=== PATIENT | male | born 1970 | race Caucasian/White ===

== ENCOUNTER 2022-06-18 05:22 | Emergency (ER) | payer OTHER ==
[2022-06-18] MEDS ORDERED: SODIUM CHLORIDE 0.9% 1,000 ML IV STA (05:24)
[2022-06-18 05:29] VITALS: RESP 18
[2022-06-18] MEDS ORDERED: levETIRAcetam IV 1,000 MG in SALINE 1 100ML.BAG IVPB ONE (05:30)
[2022-06-18 05:45] LABS: Basophils % (A) 1 %; Eosinophils # (A) 0.2 k/uL (0-0.7); Eosinophils % (A) 2 %; HCT 43.7 % (39.0-53.0); Lymphocytes # (A) 1.6 k/uL (1.0-4.8); Lymphocytes % (A) 23 %; MCH 32.7 pg (25.0-35.0); MCHC 34.3 g/dL (31.0-37.0); MCV 95.6 fL (80.0-100.0); Mean Platelet Volume 7.4; Monocytes # (A) 0.4 k/uL (0-1.0); Monocytes % (A) 6 %; Neutrophils # (A) 4.8 k/uL (1.3-7.7); Neutrophils % (A) 66 %; Platelet Count 427 k/uL (150-450); RBC 4.57 m/uL (4.30-5.90); RDW 12.9 % (11.5-15.5); WBC 7.2 k/uL (3.8-10.6)
[2022-06-18 05:53] LABS: ALT 23 U/L (4-49); African American GFR (CKD) >90 (>60 ml/min/1.73 sqM); Albumin 4.6 g/dL (3.5-5.0); Alcohol <10 mg/dL; Anion Gap 8 mmol/L; Blood Urea Nitrogen 11 mg/dL (9-20); Calcium 9.5 mg/dL (8.4-10.2); Carbon Dioxide 23 mmol/L (22-30); Chloride 105 mmol/L (98-107); Glucose 148 mg/dL (74-99); Non-African American GFR(CKD) >90 (>60 ml/min/1.73 sqM); Sodium 136 mmol/L (137-145); Total Bilirubin 0.6 mg/dL (0.2-1.3); Total Protein 7.1 g/dL (6.3-8.2)
[2022-06-18 06:00] LABS: Magnesium 2.2 mg/dL (1.6-2.3); Potassium 4.1 mmol/L (3.5-5.1)
[2022-06-18 06:01] LABS: AST 35 U/L (17-59)
[2022-06-18 06:02] LABS: Alkaline Phosphatase 37 U/L (38-126)
--- NOTE | 2022-06-18 06:28 | ED ---
Seizure HPI - General Chief Complaint: Seizure Stated Complaint: Seizure Time Seen by Provider: 06/18/22 06:05 Source: patient, family, EMS, RN notes reviewed, old records reviewed Mode of arrival: EMS Limitations: no limitations - History of Present Illness Initial Comments: 51-year-old, well-appearing male presents to the emergency room with his after having a seizure at 0417 this morning. states that he woke her with seizure activity. She states that 3 years ago he had a similar seizure and they did not follow up with neurology at that time. Patient states that he does drink about 6 beers a day every day last drink at midnight. He does not take any medications on a daily basis. He is a nonsmoker. MD Complaint: seizure -: hour(s) (2) Description of Episode: post-event confusion -: minutes(s) (7) Witnessed: yes - by other () Trauma: No Seizure History: history of withdrawal seizures Place: home Possible Precipitating Event: alcohol withdrawal Associated Symptoms: denies other symptoms - Related Data Allergies Allergy/AdvReac Type Severity Reaction Status Date / Time No Known Allergies Allergy Verified 06/18/22 05:37 Review of Systems ROS Statement: Those systems with pertinent positive or pertinent negative responses have been documented in the HPI. ROS Other: All systems not noted in ROS Statement are negative. General Exam Limitations: no limitations General appearance: alert, in no apparent distress Head exam: Present: atraumatic Eye exam: Present: normal appearance, EOMI. Absent: scleral icterus, conjunctival injection, periorbital swelling, periorbital tenderness ENT exam: Present: normal oropharynx, other (bruising to left lateral tongue) Neck exam: Present: normal inspection, full ROM. Absent: tenderness, meningismus, lymphadenopathy Respiratory exam: Present: normal lung sounds bilaterally. Absent: respiratory distress, accessory muscle use Cardiovascular Exam: Present: regular rate, normal rhythm GI/Abdominal exam: Present: soft. Absent: distended, tenderness Extremities exam: Present: normal inspection, full ROM, normal capillary refill. Absent: tenderness, pedal edema Back exam: Present: normal inspection, full ROM. Absent: tenderness, CVA tenderness (R), CVA tenderness (L), paraspinal tenderness, vertebral tenderness, rash noted Neurological exam: Present: alert, oriented X3, CN II-XII intact Expanded Patient oriented to: Present: person, place, time Speech: Present: fluid speech Cranial nerves: EOM's Intact: Normal, Gag Reflex: Normal, Tongue Deviation: Normal, Nystagmus: Normal Cerebellar function: Finger to Nose: Normal, Heel to [place]: Normal Motor strength exam: RUE: 5, LUE: 5, RLE: 5, LLE: 5 Eye Response: (4) open spontaneously Motor Response: (6) obeys commands Verbal Response: (5) oriented Radha Total: 15 Psychiatric exam: Present: normal affect, normal mood Skin exam: Present: warm, dry, normal color. Absent: cyanosis, diaphoretic, petechiae, pallor Course Vital Signs 06/18/22 06/18/22 06/18/22 05:25 07:31 08:20 Temperature 98.7 F 98.1 F Pulse Rate 92 78 83 Respiratory 18 18 18 Rate Blood Pressure 152/91 138/87 138/99 O2 Sat by Pulse 95 98 98 Oximetry Medical Decision Making - Medical Decision Making Patient presents with a seizure today at 0417, witnessed by . He has a history of similar seizure 3 years ago. He does drink daily 6 beers a day. states that it was likely a alcohol withdrawal seizure 3 years ago. Does not take any medication on a daily basis. Last drink was midnight. Alcohol level today is 0. Electrolytes and CBC are unremarkable. CT of the brain shows no mass or intracranial bleed. On physical exam patient has no focal neurological deficits. Moving all extremities. Denies any pain. Patient was given a liter of normal saline and 1 g of Keppra by previous provider. UA positive for tricyclic antidepressants. He states he did take 2 muscle relaxers last night. Patient was offered Librium for alcohol withdrawal or [facility] follow-up and declined. He was advised to follow-up with the primary care doctor or return to the emergency room with any other concerning symptoms. Patient and are agreeable to this plan of care. Patient is ambulatory with steady gait. Case discussed with Dr. Owen. Vital signs are stable at discharge. - Lab Data Result diagrams: 06/18/22 05:34 06/18/22 05:34 Lab Results 06/18/22 06/18/22 06/18/22 Range/Units 05:34 05:34 06:59 WBC 7.2 (3.8-10.6) k/uL RBC 4.57 (4.30-5.90) m/uL Hgb 15.0 (13.0-17.5) gm/dL Hct 43.7 (39.0-53.0) % MCV 95.6 (80.0-100.0) fL MCH 32.7 (25.0-35.0) pg MCHC 34.3 (31.0-37.0) g/dL RDW 12.9 (11.5-15.5) % Plt Count 427 (150-450) k/uL MPV 7.4 Neutrophils % 66 % Lymphocytes % 23 % Monocytes % 6 % Eosinophils % 2 % Basophils % 1 % Neutrophils # 4.8 (1.3-7.7) k/uL Lymphocytes # 1.6 (1.0-4.8) k/uL Monocytes # 0.4 (0-1.0) k/uL Eosinophils # 0.2 (0-0.7) k/uL Basophils # 0.0 (0-0.2) k/uL Sodium 136 L (137-145) mmol/L Potassium 4.1 (3.5-5.1) mmol/L Chloride 105 (98-107) mmol/L Carbon Dioxide 23 (22-30) mmol/L Anion Gap 8 mmol/L BUN 11 (9-20) mg/dL Creatinine 0.66 (0.66-1.25) mg/dL Est GFR (CKD-EPI)AfAm >90 (>60 ml/min/1.73 sqM) Est GFR (CKD-EPI)NonAf >90 (>60 ml/min/1.73 sqM) Glucose 148 H (74-99) mg/dL Calcium 9.5 (8.4-10.2) mg/dL Magnesium 2.2 (1.6-2.3) mg/dL Total Bilirubin 0.6 (0.2-1.3) mg/dL AST 35 (17-59) U/L ALT 23 (4-49) U/L Alkaline Phosphatase 37 L (38-126) U/L Total Protein 7.1 (6.3-8.2) g/dL Albumin 4.6 (3.5-5.0) g/dL Urine Color Light Yellow Urine Appearance Clear (Clear) Urine pH 6.0 (5.0-8.0) Ur Specific [place] 1.009 (1.001-1.035) Urine Protein Negative (Negative) Urine Glucose (UA) Negative (Negative) Urine Ketones Negative (Negative) Urine Blood Negative (Negative) Urine Nitrite Negative (Negative) Urine Bilirubin Negative (Negative) Urine Urobilinogen <2.0 (<2.0) mg/dL Ur Leukocyte Esterase Negative (Negative) Urine Opiates Screen Not Detected (NotDetected) Ur Oxycodone Screen Not Detected (NotDetected) Urine Methadone Screen Not Detected (NotDetected) Ur Propoxyphene Screen Not Detected (NotDetected) Ur Barbiturates Screen Not Detected (NotDetected) U Tricyclic Antidepress Detected H (NotDetected) Ur Phencyclidine Scrn Not Detected (NotDetected) Ur Amphetamines Screen Not Detected (NotDetected) U Methamphetamines Scrn Not Detected (NotDetected) U Benzodiazepines Scrn Not Detected (NotDetected) Urine Cocaine Screen Not Detected (NotDetected) U Marijuana (THC) Screen Detected H (NotDetected) Serum Alcohol <10 mg/dL Disposition Clinical Impression: Seizure Disposition: HOME SELF-CARE Condition: Good Instructions (If sedation given, give patient instructions): Recurrent Seizures in Adults (ED) Additional Instructions: This is likely an alcohol withdrawal seizure. You were offered Librium and referred to services at [facility] for alcohol withdrawal assistance and declined at this time. Follow-up with the primary care doctor this week. Return to the emergency room with any new or concerning symptoms. Is patient prescribed a controlled substance at d/c from ED?: No Referrals: None,Stated [Primary Care Provider] - 1-2 days Thee Coombs MD [REFERRING] - 1-2 days Time of Disposition: 08:03
--- NOTE | 2022-06-18 06:37 | CT ---
EXAMINATION TYPE: CT brain wo con DATE OF EXAM: 06/18/2022 COMPARISON: None HISTORY: seizure. no prior on PACS CT DLP: 1157 mGycm Automated exposure control for dose reduction was used. Ventricles and sulci appear normal. There is no mass effect or midline shift. There is no evidence of intracranial hemorrhage. Calvarium is intact. There is normal aeration of the mastoid sinuses. IMPRESSION: Normal unenhanced head CT scan.
[2022-06-18 07:22] LABS: Appearance,Urine Clear (Clear); Bilirubin,Urine Negative (Negative); Blood,Urine Negative (Negative); Color,Urine Light Yellow; Glucose,Urine (UA) Negative (Negative); Ketones,Urine Negative (Negative); Leukocyte Esterase,Urine Negative (Negative); Nitrite,Urine Negative (Negative); Protein,Urine Negative (Negative); Specific Gravity,Urine 1.009 (1.001-1.035); Urobilinogen,Urine <2.0 mg/dL (<2.0)
[2022-06-18 07:45] LABS: Amphetamine Screen,Urine Not Detected (NotDetected); Barbiturate Screen,Urine Not Detected (NotDetected); Benzodiazepines Screen,Urine Not Detected (NotDetected); Cocaine Screen,Urine Not Detected (NotDetected); Methadone Screen, Urine Not Detected (NotDetected); Opiate Screen,Urine Not Detected (NotDetected); Oxycodone Screen, Urine Not Detected (NotDetected); Phencyclidine Screen,Urine Not Detected (NotDetected); Tricyclic Antidepressant,Urine Detected (NotDetected); Urn Cannabinoid Scrn Detected (NotDetected)
[2022-06-18 08:23] VITALS: BP 138/99; PULSE 83; TEMP 98.1
== END 2022-06-18 08:23 | disposition home or self-care (01) ==
LOC: EC 05:22
DX: R56.9 Unspecified convulsions (principal)
CPT/HCPCS: 36415; 93005; 80053; 83735; 85025; 81003; 80306; 80320; 70450; 99285; 96365; 96366; J1953

== ENCOUNTER 2022-08-22 06:55 | Inpatient (IN) | payer OTHER ==
[2022-08-22] MEDS ORDERED: SODIUM CHLORIDE 0.9% 1,000 ML IV STA (07:05)
[2022-08-22 07:10] VITALS: RESP 16
--- NOTE | 2022-08-22 07:35 | ED ---
General Adult HPI - General Chief complaint: Alcohol Stated complaint: Seizure Time Seen by Provider: 08/22/22 07:00 Source: patient, EMS, RN notes reviewed Mode of arrival: EMS Limitations: altered mental status - History of Present Illness Initial comments: 52-year-old male presents emergency Department with chief complaint of seizure. Patient brought in by medics EMS after called. Patient does not remember anything states he woke up to EMS at his house. Patient does admit that he drinks approximately 6 beers daily but does not feel this is related to has not drank any less or more recent. Patient did have a seizure a few months ago but never followed neurology. Patient did have CT of his brain at that time which showed no acute process. Patient did have my attending injury no recurrent bleeding. Tetanus is up-to-date. Denies any head neck or back pain. - Related Data Allergies Allergy/AdvReac Type Severity Reaction Status Date / Time No Known Allergies Allergy Verified 06/18/22 05:37 Review of Systems ROS Statement: Those systems with pertinent positive or pertinent negative responses have been documented in the HPI. ROS Other: All systems not noted in ROS Statement are negative. Past Medical History Past Medical History: Neurologic Disorder History of Any Multi-Drug Resistant Organisms: None Reported Past Psychological History: Unable to Obtain Smoking Status: Current every day smoker Past Alcohol Use History: Daily Past Drug Use History: Marijuana General Exam Limitations: no limitations General appearance: alert, in no apparent distress Head exam: Present: atraumatic, normocephalic, normal inspection Eye exam: Present: normal appearance, PERRL, EOMI. Absent: scleral icterus, conjunctival injection, periorbital swelling ENT exam: Present: mucous membranes moist. Absent: normal oropharynx (Small tongue laceration on the lateral portion) Neck exam: Present: normal inspection, full ROM. Absent: tenderness, meningismus, lymphadenopathy Respiratory exam: Present: normal lung sounds bilaterally. Absent: respiratory distress, wheezes, rales, rhonchi, stridor Cardiovascular Exam: Present: regular rate, normal rhythm, normal heart sounds. Absent: systolic murmur, diastolic murmur, rubs, gallop, clicks GI/Abdominal exam: Present: soft, normal bowel sounds. Absent: distended, ten derness, guarding, rebound, rigid Neurological exam: Present: alert, oriented X3, CN II-XII intact, reflexes normal. Absent: motor sensory deficit Skin exam: Present: warm, dry, intact, normal color. Absent: rash Course Vital Signs 08/22/22 08/22/22 08/22/22 07:05 07:40 08:30 Temperature 97.8 F Pulse Rate 94 87 94 Respiratory 16 16 16 Rate Blood Pressure 157/91 147/93 154/85 O2 Sat by Pulse 95 98 100 Oximetry 08/22/22 08/22/22 09:00 09:30 Temperature Pulse Rate 89 81 Respiratory 16 16 Rate Blood Pressure 135/90 136/89 O2 Sat by Pulse 98 98 Oximetry Medical Decision Making - Lab Data Result diagrams: 08/22/22 07:30 08/22/22 07:30 Lab Results 08/22/22 08/22/22 Range/Units 07:30 07:30 WBC 8.0 (3.8-10.6) k/uL RBC 4.97 (4.30-5.90) m/uL Hgb 16.0 (13.0-17.5) gm/dL Hct 45.7 (39.0-53.0) % MCV 92.0 (80.0-100.0) fL MCH 32.2 (25.0-35.0) pg MCHC 35.0 (31.0-37.0) g/dL RDW 12.8 (11.5-15.5) % Plt Count 348 (150-450) k/uL MPV 8.2 Neutrophils % 79 % Lymphocytes % 12 % Monocytes % 5 % Eosinophils % 2 % Basophils % 0 % Neutrophils # 6.3 (1.3-7.7) k/uL Lymphocytes # 1.0 (1.0-4.8) k/uL Monocytes # 0.4 (0-1.0) k/uL Eosinophils # 0.2 (0-0.7) k/uL Basophils # 0.0 (0-0.2) k/uL Sodium 139 (137-145) mmol/L Potassium 4.4 (3.5-5.1) mmol/L Chloride 102 (98-107) mmol/L Carbon Dioxide 27 (22-30) mmol/L Anion Gap 10 mmol/L BUN 8 L (9-20) mg/dL Creatinine 0.68 (0.66-1.25) mg/dL Est GFR (CKD-EPI)AfAm >90 (>60 ml/min/1.73 sqM) Est GFR (CKD-EPI)NonAf >90 (>60 ml/min/1.73 sqM) Glucose 118 H (74-99) mg/dL Calcium 10.0 (8.4-10.2) mg/dL Magnesium 2.3 (1.6-2.3) mg/dL Total Bilirubin 0.6 (0.2-1.3) mg/dL AST 27 (17-59) U/L ALT 21 (4-49) U/L Alkaline Phosphatase 42 (38-126) U/L Total Protein 7.7 (6.3-8.2) g/dL Albumin 5.1 H (3.5-5.0) g/dL Serum Alcohol <10 mg/dL Disposition Clinical Impression: Alcohol withdrawal seizure, Seizure, Dehydration Disposition: ADMITTED IP TO THIS HOSP Condition: Fair Referrals: None,Stated [Primary Care Provider] - 1-2 days Time of Disposition: 08:58
[2022-08-22 07:58] LABS: Basophils % (A) 0 %; Eosinophils # (A) 0.2 k/uL (0-0.7); Eosinophils % (A) 2 %; HCT 45.7 % (39.0-53.0); Lymphocytes % (A) 12 %; MCH 32.2 pg (25.0-35.0); Mean Platelet Volume 8.2; Monocytes # (A) 0.4 k/uL (0-1.0); Monocytes % (A) 5 %; Neutrophils # (A) 6.3 k/uL (1.3-7.7); Neutrophils % (A) 79 %; Platelet Count 348 k/uL (150-450); RBC 4.97 m/uL (4.30-5.90); RDW 12.8 % (11.5-15.5)
[2022-08-22 08:11] LABS: ALT 21 U/L (4-49); AST 27 U/L (17-59); African American GFR (CKD) >90 (>60 ml/min/1.73 sqM); Albumin 5.1 g/dL (3.5-5.0); Alcohol <10 mg/dL; Alkaline Phosphatase 42 U/L (38-126); Anion Gap 10 mmol/L; Blood Urea Nitrogen 8 mg/dL (9-20); Carbon Dioxide 27 mmol/L (22-30); Chloride 102 mmol/L (98-107); Glucose 118 mg/dL (74-99); Magnesium 2.3 mg/dL (1.6-2.3); Non-African American GFR(CKD) >90 (>60 ml/min/1.73 sqM); Potassium 4.4 mmol/L (3.5-5.1); Sodium 139 mmol/L (137-145); Total Bilirubin 0.6 mg/dL (0.2-1.3); Total Protein 7.7 g/dL (6.3-8.2)
[2022-08-22] MEDS ORDERED: LORazepam 1 MG TAB PO PRN ×4 (10:03)
[2022-08-22] MEDS ORDERED: LORazepam 0.5 MG TAB PO PRN (10:03)
[2022-08-22] MEDS ORDERED: LORazepam 2 MG/ML INJ IV PRN (10:03)
[2022-08-22] MEDS ORDERED: NALOXONE 0.4 MG/ML 1 ML VIAL IV PRN (10:04)
[2022-08-22] MEDS ORDERED: ACETAMINOPHEN TAB 325 MG TAB PO PRN (10:04)
[2022-08-22] MEDS: SODIUM CHLORIDE 0.9% 1,000 ML IV SCH ×2 (12:10→14:38)
[2022-08-22] MEDS ORDERED: TEMAZEPAM 15 MG CAP PO PRN (12:33)
[2022-08-22 12:57] LABS: Amphetamine Screen,Urine Not Detected (NotDetected); Barbiturate Screen,Urine Not Detected (NotDetected); Benzodiazepines Screen,Urine Not Detected (NotDetected); Cocaine Screen,Urine Not Detected (NotDetected); Methadone Screen, Urine Not Detected (NotDetected); Opiate Screen,Urine Not Detected (NotDetected); Oxycodone Screen, Urine Not Detected (NotDetected); Phencyclidine Screen,Urine Not Detected (NotDetected); Tricyclic Antidepressant,Urine Not Detected (NotDetected); Urn Cannabinoid Scrn Detected (NotDetected)
--- NOTE | 2022-08-22 13:13 | P.CNNES ---
History of Present Illness Consult date: 08/02/22 Requesting physician: Ed York Reason for Consult: seizure History of Present Illness: This is a 52-year-old gentleman with history of one seizure episode in 05/2022, alcohol use, tobacco use presented emergency department on 08/22/2022 for a another seizure episode. Patient stated that he had a seizure episode in May and had his second seizure today and both times and happened while sleeping. He bit his tongue this time on bilateral lateral anterior side. He denies any urinary or bowel incontinence. He does not recall of the seizure episode but it was witnessed by his appear denies any urinary or bowel incontinence. Denies any auras prior to the seizure. He states that he continues to drink hea vily and drinks at least 6 small shots. He denies tapering alcohol. Denies any family history of seizure. He stated that his father had glioblastoma multiform in his late 50s years old. She denies of any headache, any visual disturbance, focal weakness or numbness. She denies of any fever. He does smoke about a pack a day. He uses marijuana but denies any illicit drug use. Some other workup during this hospital visit consisted of: Patient is afebrile CBC with differential is unremarkable Glucose is 118, plasma lactic acid is 0.9. AST and ALT is within normal limits. Sodium is within normal limits. Urine drug screen is marijuana is detected the serum alcohol was less than 10. Of note patient had CT of the head without contrast on 06/18/2022 because of seizure and it's reported as unremarkable. Review of Systems Review of system: The 12 point system was reviewed and apparent positive and negative per HPI. Past Medical History Past Medical History: Neurologic Disorder History of Any Multi-Drug Resistant Organisms: None Reported Past Psychological History: Unable to Obtain Smoking Status: Current every day smoker Past Alcohol Use History: Daily Past Drug Use History: Marijuana Medications and Allergies Home Medications Medication Instructions Recorded Confirmed Type No Known Home Medications 08/22/22 08/22/22 History Allergies Allergy/AdvReac Type Severity Reaction Status Date / Time No Known Allergies Allergy Verified 08/22/22 10:49 Physical Examination - Vital Signs Vital Signs: Vital Signs Temp Pulse Resp BP Pulse Ox 08/22/22 11:00 83 16 148/81 98 08/22/22 10:30 87 16 120/74 99 08/22/22 10:00 79 16 144/91 97 08/22/22 09:30 81 16 136/89 98 08/22/22 09:00 89 16 135/90 98 08/22/22 08:30 94 16 154/85 100 08/22/22 07:40 87 16 147/93 98 08/22/22 07:05 97.8 F 94 16 157/91 95 Intake and Output 08/21/22 08/22/22 08/22/22 22:59 06:59 14:59 Other: Weight 77.111 kg GENERAL: The patient is lying in bed and is not in acute distress. CHEST: The heart rate is regular rate rhythm. No murmurs to auscultation. LUNG: Clear to auscultation bilaterally no wheezing noted throughout. Not labored breathing. ABDOMEN/GI: Bowel sounds present in all 4 quadrants. No tenderness to palpation throughout. NEUROLOGICAL: Higher mental function: The patient is awake, alert, oriented to self, place and time. Patient is following commands. No aphasia and no neglect. Cranial nerves: The pupils are round, equal and reactive to light and accommodation. Visual venegas are full to confrontation throughout. Extraocular movement is intact no nystagmus is noted. Facial sensation is normal to touch throughout. The facial strength is normal throughout. Hearing is normal bi laterally to hand rub. Tongue is midline and moved [id number] without any difficulty. Has tongue bite over the anterior lateral bilaterally. No dysarthria is noted. Shoulder shrug is normal bilaterally. Motor: The strength is 5 over 5 throughout. Normal tone and bulk. Cerebellum: Normal finger to nose bilaterally. Sensation: Sensation is normal to touch throughout. Reflexes (right/left): 2+ throughout. Plantars are downgoing bilaterally. Results - Laboratory Findings CBC and BMP: 08/22/22 07:30 08/22/22 07:30 Abnormal Lab Findings: Abnormal Labs 08/22/22 08/22/22 07:30 07:30 BUN 8 L Glucose 118 H Albumin 5.1 H U Marijuana (THC) Screen Detected H Assessment and Plan Assessment: Breakthrough seizure (this is second seizure, had one in 05/2022 and had another today and both while asleep. Has tongue bite. Denies cutting down on his alcohol use but his level is <2). Unsure if patient has primary epilepsy or due to alcohol Significant ongoing alcohol use Tobacco use Depression Anxiety Father had history of glioblastoma multiform. Plan: I ordered a routine EEG. I started the patient on Vimpat 50 motor arm 1 tablet twice a day since this is second seizure. Did not start Keppra since has depression and can worsening his mood. Recommend MRI Brain w/ and w/o seizure protocol (but today MRI is full. Patient stated he would prefer to do it as outpatient). CT of the head without is ordered by the primary team Is on seizure pads and seizure precautions Patient is on CIWA protocol and will defer management to primary team. Continue thiamine 100 mg daily Patient was counseled on tobacco station on alcohol cessation. Patient was notified that per [place] DMV so avoid driving for 6 month until seizure-free, avoid heights, avoid swimming unassisted or using any heavy machinery Plan was discussed with the patient. Thank you for the consultation. Jordi Sood M.D. Neuro-Hospitalist Time with Patient: Greater than 30
--- NOTE | 2022-08-22 13:58 | CT ---
EXAMINATION TYPE: CT brain wo con DATE OF EXAM: 08/22/2022 COMPARISON: 08/19/2022 INDICATION: Seizure DLP: 1263 mGycm, Automated exposure control for dose reduction was used. CONTRAST: None CT of the brain is performed utilizing 3 mm thick sections through the posterior fossa and 3 mm thick sections through the remaining calvarium. Study is performed within 24 hours of arrival to the hosp ital. No abnormal hyperdensity is present to suggest an acute intracranial hemorrhage. No mass lesion is evident. No acute infarcts are evident. Ventricles and sulci are appropriate for the patient age. Retention cyst may be within the right maxillary sinus. Paranasal sinuses and mastoid air cells are o therwise clear. IMPRESSIONS: 1. No acute cranial process. Follow-up MRI could be performed as clinically indicated.
[2022-08-22] MEDS: THIAMINE 100 MG TAB PO SCH (14:39)
[2022-08-22] MEDS: LACOSAMIDE 50 MG TABLET PO SCH ×2 (14:39→20:57)
[2022-08-22] MEDS: HEPARIN SODIUM,PORCINE/PF 5,000 UNIT/0.5 ML SYRINGE SQ SCH (20:57)
--- NOTE | 2022-08-22 23:58 | HP ---
HISTORY AND PHYSICAL CHIEF COMPLAINT: Seizure. HISTORY OF PRESENT ILLNESS: A 52-year-old gentleman with a past medical history of multiple medical issues including seizures who recently moved to the area, not complaining of . Admitted to generalized tonic-clonic seizures today. The patient apparently had a last seizure in May. Patient also had a history of some alcohol intake also. There is no history of any fever rigors or chills. PAST MEDICAL HISTORY: Reviewed include seizures, some alcohol. HOME MEDICATIONS: None. ALLERGIES: None. FAMILY HISTORY: No history of heart disease or strokes in the family. SOCIAL HISTORY: History of smoking, alcohol, THC. REVIEW OF SYSTEMS: A 14-point review is negative as mentioned earlier. PHYSICAL EXAMINATION: VITAL SIGNS: Pulse is 87, blood pressure 110/74, and respirations 16. HEENT: Conjunctivae normal. NECK: No jugular venous distention. RESPIRATIONS: Normal respirations at the basis. No rhonchi, no crackles. ABDOMEN: Soft. Nontender. NERVOUS SYSTEM: As mentioned cranial nerves normal. No focal deficits. SKIN: No ulcer, rash, bleeding. JOINTS: No active deforming arthropathy. LABS: Reviewed glucose 11. ASSESSMENT: 1. Acute tonic-clonic seizures. 2. History of previous seizures history of possible ETOH. RECOMMENDATIONS: This 52-year-old gentleman presented with multiple complex medical issues, we will monitor the patient closely. Continue the current medications, symptomatic treatment. We will obtain CAT scan of the brain and routine workup and neurology evaluation. We will continue to monitor. Repeat labs. Remote telemetry. Guarded prognosis. Further condition follow, also recommend the patient follow closely with primary physician as well as neurologist, NUSRAT protocol. LAINEYL / JASSIN: [id number] / MTDHemant
--- NOTE | 2022-08-23 03:40 | EEG ---
ELECTROENCEPHALOGRAM REPORT CLINICAL HISTORY: This is a 52-year-old gentleman who had another seizure-like episode at home. The video EEG is obtained to evaluate for seizure epileptiform activity. RELEVANT MEDICATION: Ativan p.r.n. EEG TYPE: A routine 21-channel EEG is performed with video using the 10/20 electrode placement system. DESCRIPTION: Wakefulness is only obtained. During awake state, the posterior-dominant rhythm consists of low to moderate voltage of 9 to 9.5 hertz activity that is well modulated and well sustained. There was no physiological stage 2 sleep architecture. There is no focal slowing. There is excessive beta activity seen during the study. INTERICTAL AND ICTAL: None. ACTIVATION PROCEDURE: Photic stimulation did not evoke a posterior driving response. There is no abnormality during the photic stimulation. Hyperventilation is not performed. CLINICAL INTERPRETATION: This is an abnormal routine EEG. The excessive beta activity is likely due to medication effect (Ativan). Otherwise, there is no focal slowing, epileptiform discharge, or seizure on the EEG. Clinical correlation is recommended MMODL / JASSIN: [id number] / A.[facility]. FOX MEMORIAL HOSPITALHemant
[2022-08-23 05:47] VITALS: BP 117/76; PULSE 68; TEMP 97.5
[2022-08-23] MEDS: SODIUM CHLORIDE 0.9% 1,000 ML IV SCH (06:07)
[2022-08-23] MEDS ORDERED: PANTOPRAZOLE 40 MG TABLET PO SCH (07:30)
[2022-08-23 08:56] LABS: Basophils # (A) 0.05 X 10*3/uL (0.00-0.10); Basophils % (A) 0.5 %; Eosinophils # (A) 0.05 X 10*3/uL (0.04-0.35); Eosinophils % (A) 0.5 %; HCT 43.4 % (39.6-50.0); HGB 15.4 g/dL (13.0-17.0); Immature Grans, Automated 0.3 %; Lymphocytes # (A) 2.02 X 10*3/uL (0.90-5.00); Lymphocytes % (A) 20.2 %; MCH 31.8 pg (27.0-32.0); MCHC 35.5 g/dL (32.0-37.0); MCV 89.7 fL (80.0-97.0); Mean Platelet Volume 9.5 fL (9.5-12.2); Monocytes # (A) 0.97 X 10*3/uL (0.20-1.00); Monocytes % (A) 9.7 %; NRBC Per 100 WBC 0 /100 WBCS (0.0-0.0); Neutrophils # (A) 6.86 X 10*3/uL (1.80-7.70); Neutrophils % (A) 68.8 %; Platelet Count 385 X 10*3/uL (140-440); RBC 4.84 X 10*6/uL (4.40-5.60); RDW 12.3 % (11.5-14.5); WBC 9.98 X 10*3/uL (4.50-10.00)
[2022-08-23] MEDS: THIAMINE 100 MG TAB PO SCH (09:05)
[2022-08-23] MEDS: HEPARIN SODIUM,PORCINE/PF 5,000 UNIT/0.5 ML SYRINGE SQ SCH (09:05)
[2022-08-23] MEDS: LACOSAMIDE 50 MG TABLET PO SCH (09:05)
[2022-08-23 09:11] LABS: Anion Gap 12.7 mmol/L (10.00-18.00); BUN/Creat Ratio 9.14 Ratio (12.00-20.00); Carbon Dioxide 25.7 mmol/L (20.0-27.5); Potassium 4.1 mmol/L (3.5-5.5)
[2022-08-23 09:12] LABS: Blood Urea Nitrogen 7.4 mg/dL (9.0-27.0); Calcium 9.7 mg/dL (8.7-10.3)
--- NOTE | 2022-08-23 10:50 | P.PN ---
Subjective Progress Note Date: 08/23/22 Patient seen at bedside and the he states that he's doing well. Per the patient's nurse no further seizure episodes since the patient has been in our hospital. Objective - Vital Signs Vital signs: Vital Signs Temp 97.5 F L 08/23/22 05:00 Pulse 68 08/23/22 05:00 Resp 16 08/23/22 05:00 BP 117/76 08/23/22 05:00 Pulse Ox 96 08/23/22 07:28 FiO2 Intake & Output 08/22/22 08/23/22 08/23/22 18:59 06:59 18:59 Intake Total 240 590 Balance 240 590 Weight 77.111 kg Intake: Oral 240 590 Other: # Voids 4 3 - Exam GENERAL: The patient is lying in bed and is not in acute distress. NEUROLOGICAL: Higher mental function: The patient is awake, alert, oriented to self, place and time. Patient is following commands. No aphasia and no neglect. Cranial nerves: The pupils are round, equal and reactive to light and accommodation. Visual venegas are full to confrontation throughout. Extraocular movement is intact no nystagmus is noted. Facial sensation is normal to touch throughout. The facial strength is normal throughout. Hearing is normal bilaterally to hand rub. Tongue is midline and moved [id number] without any d ifficulty. Has tongue bite over the anterior lateral bilaterally. No dysarthria is noted. Shoulder shrug is normal bilaterally. Motor: The strength is 5 over 5 throughout. Normal tone and bulk. Cerebellum: Normal finger to nose bilaterally. Sensation: Sensation is normal to touch throughout. Reflexes (right/left): 2+ throughout. Plantars are downgoing bilaterally. Some other workup during this hospital visit consisted of: Patient is afebrile CBC with differential is unremarkable Glucose is 118, plasma lactic acid is 0.9. AST and ALT is within normal limits. Sodium is within normal limits. Routine EEG is abnormal. The excessive beta activity is likely due to medication effect (Ativan). Otherwise the background is normal, there is no focal slowing, epileptiform discharges or seizure CT of the head is reported as no acute cranial process. Follow-up MRI could be performance currently indicated. Urine drug screen is marijuana is detected the serum alcohol was less than 10. - Labs CBC & Chem 7: 08/23/22 05:47 08/23/22 05:47 Labs: Abnormal Lab Results - Last 24 Hours (Table) 08/22/22 08/23/22 Range/Units 07:30 05:47 BUN 7.4 L (9.0-27.0) mg/dL BUN/Creatinine Ratio 9.14 L (12.00-20.00) Ratio U Marijuana (THC) Screen Detected H (NotDetected) Assessment and Plan Assessment: * Breakthrough seizure (this is second seizure, had one in 05/2022 and had another on 08/22/22 and both while asleep. Has tongue bite. Denies cutting down on his alcohol use but his level is <2). Unsure if patient has primary epilepsy or due to alcohol * Significant ongoing alcohol use * Tobacco use * Depression * Anxiety * Marijuana use * Father had history of glioblastoma multiform. Plan: Routine EEG is negative for epileptiform discharges or seizure. Recommend MRI Brain w/ and w/o seizure protocol as outpatient (he does not want to stay as inpatient for it). Recommend prolonged EEG/ambulatory EEG as outpatient (preferable sleep deprived). I personally ordered it as outpatient and will be coordinated by our bioinformatics research technician. Continue Vimpat 50mg 1 tablet twice a day since this is second seizure (started on 08/22/22). Did not start Keppra since has depression and can worsening his mood. Is on seizure pads and seizure precautions Patient is on CIWA protocol and will defer management to primary team. Continue thiamine 100 mg daily Patient was counseled on tobacco station on alcohol cessation. Patient was notified that per [place] DMV so avoid driving for 6 month until seizure-free, avoid heights, avoid swimming unassisted or using any heavy machinery Patient needs to follow-up with neurologist as outpatient within 1-2 weeks. Plan was discussed with the patient and his nurse. Patient is clear for discharge from neurological perspective. Jordi Sood M.D. Neuro-Hospitalist Time with Patient: Less than 30
[2022-08-23] MEDS ORDERED: MULTIVITAMINS, THERA 1 EACH TAB PO SCH (12:00)
[2022-08-23] MEDS ORDERED: FOLIC ACID 1 MG TAB PO SCH (12:00)
--- NOTE | 2022-08-24 10:44 | DS ---
DISCHARGE SUMMARY FINAL DIAGNOSES: 1. Acute tonic-clonic seizures. 2. History of previous seizures with possible EtOH. DISCHARGE DISPOSITION: The patient will be discharged in stable condition. Guarded prognosis. Discharge cleared by Neurology. HISTORY OF PRESENT ILLNESS: This is a 52-year-old gentleman with a past medical history of multiple medical problems admitted with seizures. Patient was treated with Vimpat. EEG was normal. Dr. Sood saw the patient and recommend that the patient be discharged on Vimpat and further recommendations to follow with Dr. Cullen and Dr. Tirado on the outpatient setting and then dosage should be adjusted in the outpatient setting. No EtOH. Once again, the prognosis was guarded. MMODL / IJN: [id number] /
== END 2022-08-23 11:45 | disposition home or self-care (01) | DRG 101 ==
LOC: EC 06:55 → 5NMEDONC 10:06
PROVIDERS: ADMIT Internal Medicine; ATTEND Internal Medicine
DX: R56.9 Unspecified convulsions (principal); E86.0 Dehydration; F17.210 Nicotine dependence, cigarettes, uncomplicated; F32.A Depression, unspecified; F41.9 Anxiety disorder, unspecified; Z71.6 Tobacco abuse counseling; Z71.41 Alcohol abuse counseling and surveillance of alcoholic; Z72.89 Other problems related to lifestyle
CPT/HCPCS: 36415; 70450; 80048; 80053; 80306; 80320; 83605; 83735; 85025; 93005; 94760; 95816; 96360; 99285

== ENCOUNTER → 2022-09-04 | Outpatient (CLI) | payer OTHER | LOC: NEUROMAIN 07:39 | PROVIDERS: ATTEND Student in an Organized Health Care Education/Training Program | DX: G40.89 Other seizures (principal) | CPT/HCPCS: 95713 ==

== ENCOUNTER 2022-12-16 09:46 | Emergency (ER) | payer OTHER ==
[2022-12-16] MEDS ORDERED: SODIUM BICARB 8.4% 50 ML SYR (1 MEQ/ML) ONE (09:47)
[2022-12-16] MEDS ORDERED: EPINEPHrine 10 ML SYRINGE (0.1 MG/ML) ONE (09:47)
--- NOTE | 2022-12-16 10:01 | ED ---
General Adult HPI - General Stated complaint: cardiac arrest Time Seen by Provider: 12/16/22 09:46 Source: EMS, RN notes reviewed, old records reviewed (Previous admission for alcohol withdrawal seizure) Mode of arrival: EMS Limitations: altered mental status, physical limitation - History of Present Illness Initial comments: Patient is a 52-year-old male presenting to the urgency Department priority 1, EMS. Patient was working in his garage ear last known well 8:45 AM. Patient did ask for a couple of coffee. Family returned at 9 AM and found patient unresponsive on the floor. Bystander CPR was started immediately. Please arrive within 5 minutes and continued CPR. EMS arrived at 911 and continued CPR. Patient was intubated and placed on Zane device as well as IO access. Patient received 7 epinephrine in route. Patient arrives to emergency department at 946, patient unresponsive. - Related Data Previous Rx's Medication Instructions Recorded Folic Acid 1 mg PO DAILY #30 tablet 08/23/22 Lacosamide [Vimpat] 100 mg PO BID #60 tab 08/23/22 Multivitamins, Thera [Multivitamin] 1 tab PO DAILY #30 tablet 08/23/22 Thiamine [Vitamin B-1] 100 mg PO DAILY #30 tablet 08/23/22 Allergies Allergy/AdvReac Type Severity Reaction Status Date / Time No Known Allergies Allergy Verified 08/22/22 10:49 Review of Systems ROS Statement: Those systems with pertinent positive or pertinent negative responses have been documented in the HPI. ROS Other: All systems not noted in ROS Statement are negative. Limitations: ROS unobtainable due to patients medical condition Past Medical History Past Medical History: Neurologic Disorder Additional Past Medical History / Comment(s): possible seizures History of Any Multi-Drug Resistant Organisms: None Reported Past Surgical History: No Surgical Hx Reported Additional Past Surgical History / Comment(s): none Past Psychological History: Unable to Obtain Smoking Status: Current every day smoker Past Alcohol Use History: Daily Past Drug Use History: Marijuana General Exam Limitations: altered mental status, physical limitation General appearance: obtunded Head exam: Present: atraumatic Eye exam: Present: other (Pupils are fixed and dilated) ENT exam: Present: other (Intubated) Respiratory exam: Present: other (No spontaneous breath sounds. Equal breath sounds with bagging insufflation) Cardiovascular Exam: Present: other (No pulse. No heart sounds.) GI/Abdominal exam: Present: soft Extremities exam: Present: normal inspection Neurological exam: Present: other (Unresponsive. GCS 3) Course - Reevaluation(s) Reevaluation #1: 12/16/22 10:01 At 957 despite further epinephrine and CPR patient remains asystole/PEA. No heart sounds. No spontaneous breath sounds. No pulse. No spots of pain. Pupils are fixed and dilated. Time of 9:57 AM. 12/16/22 10:12 Family still not is present. Case was discussed with medical assistant cardiology Octavia once family arrives and she will decide disposition of body at that time. Medical Decision Making - Medical Decision Making Was pt. sent in by a medical professional or institution (, PA, CHILD SUPPORT OFFICER, urgent care, hospital, or [place] [facility] facility...) When possible be specific @ -No Did you speak to anyone other than the patient for history (EMS, parent, family, police, friend...)? What history was obtained from this source @ -EMS provides entire history. Patient is unresponsive. Did you review nursing and triage notes (agree or disagree)? Why? @ -I reviewed and agree with nursing and triage notes Were old charts reviewed (outside hosp., previous admission, EMS record, old EKG, old radiological studies, urgent care reports/EKG's, [place] [facility] [place] records)? Report findings @ -Previous admission reviewed for alcohol withdrawal/seizure Differential Diagnosis (chest pain, altered mental status, abdominal pain women, abdominal pain men, vaginal bleeding, weakness, fever, dyspnea, syncope, headache, dizziness, GI bleed, back pain, seizure, CVA, palpatations, mental health)? @ -Differential Chest Pain: Stable Angina, Unstable Angina, STEMI, NSTEMI Aortic Dissection, Pneumothorax, Musculoskeletal, Esophageal Spasm GERD, Cholecystitis, Pancreatitis, Zoster, this is not meant to be an all-inclusive list. Differential Altered Mental Status: Hypoglycemia, DKA, hypercapnia, ETOH, overdose, CO poisoning, trauma, myxedema coma, HTN encephalopathy, infection, encephalitis, psychosis, intercranial hemorrhage, hepatic encephalopathy, meningitis, CVA, this is not meant to be an all-inclusive list EKG interpreted by me (3pts min.). @ - X-rays interpreted by me (1pt min.). @ -None done CT interpreted by me (1pt min.). @ -None done U/S interpreted by me (1pt. min.). @ -None done What testing was considered but not performed or refused? (CT, X-rays, U/S, labs)? Why? @ -Multiple tests considered including x-ray CT and labs however patient has What meds were considered but not given or refused? Why? @ -None Did you discuss the management of the patient with other professionals (professionals i.e. DrJenny, PA, CHILD SUPPORT OFFICER, lab, RT, psych nurse, social service agency director, principle industrial hygienist, teacher, community resource officer, case checker)? Give summary @ -Discuss case with medical assistant cardiology and disposition is still pending Was smoking cessation discussed for >3mins.? @ -No Was critical care preformed (if so, how long)? @ -Critical care time 10 minutes Were there social determinants of health that impacted care today? How? (Homelessness, low income, unemployed, alcoholism, drug addiction, transportation, low edu. Level, literacy, decrease access to med. care, care home, rehab)? @ -No Was there de-escalation of care discussed even if they declined (Discuss DNR or withdrawal of care, Hospice)? DNR status @ -No What co-morbidities impacted this encounter? (DM, HTN, Smoking, COPD, CAD, Cancer, CVA, ARF, Chemo, Hep., AIDS, mental health diagnosis, sleep apnea, morbid obesity)? @ -None Was patient admitted / discharged? Hospital course, mention meds given and route, prescriptions, significant lab abnormalities, going to OR and other pertinent info. @ -Patient . Time of 957. school psychological examiner updated. Family now present. Undiagnosed new problem with uncertain prognosis? @ -No Drug Therapy requiring intensive monitoring for toxicity (Heparin, Nitro, Insulin, Cardizem)? @ -No Were any procedures done? @ -No Diagnosis/symptom? @ -Cardiac arrest Acute, or Chronic, or Acute on Chronic? @ -Acute Uncomplicated (without systemic symptoms) or Complicated (systemic symptoms)? @ -Complicated by Side effects of treatment? @ -No Exacerbation, Progression, or Severe Exacerbation? @ -No Poses a threat to life or bodily function? How? (Chest pain, [place], [place], pneumonia, PE, COPD, DKA, ARF, appy, cholecystitis, CVA, Diverticulitis, Homicidal, Suicidal, threat to staff... and all critical care pts) @ -Complicated by Critical Care Time Critical Care Time: Yes Total Critical Care Time: 10 Disposition Clinical Impression: Cardiac arrest Disposition: Is patient prescribed a controlled substance at d/c from ED?: No Referrals: None,Stated [Primary Care Provider] - 1-2 days Time of Disposition: 10:06 Preliminary Cause of : Cardiac arrest
== END 2022-12-16 12:00 | disposition expired ==
LOC: EC 09:46
DX: I46.9 Cardiac arrest, cause unspecified (principal); F17.200 Nicotine dependence, unspecified, uncomplicated; F12.90 Cannabis use, unspecified, uncomplicated
CPT/HCPCS: 99285